=== PATIENT | female | born 1985 | race Hispanic/Latino ===

== ENCOUNTER 2019-11-26 21:25 | Emergency (ER) | payer OTHER ==
[~2019-11-26] VITALS: Ht 149.9 cm; Wt 75.7 kg
--- OUTSIDE RECORDS SUMMARY | 2019-11-26 21:28 | XMS REPORT | Continuity of Care Document ---
Author Author [facility] t Organization [facility] Address [address] [place] [address] Phone Unavailable Care Team Providers Care Waxer Tender Name Role Phone Tonia Tan PCP Dom HUTCHINSON, Deena Rose Attphys Payers Payer Name Policy Type Policy Number Effective Date Expiration Date S [facility] MEDICAID - MEDICAID [id number] CHIPxxxxxxxxx xxxxxxxxx [facility] Problems This patient has no known problems. Allergies, Adverse Reactions, Alerts Allergy Name Allergy Type Status Severity Reaction(s) Onset Date Inacti ve Date Treating Clinician Comments Source No Known Allergies DA Active U 2018-11-30 00:00:00 [facility] No Known Allergies DA Active U 2016-12-01 00:00:00 [facility] Social History Social Habit Start Date Stop Date Quantity Comments Source History SDOH Alcohol Std Drinks [facility] History SDOH Alcohol Binge [facility] Sex Assigned At [facility] History SDOH Alcohol Frequency 2019-08-31 00:00:00 2019-08-31 00:00:0 0 1 [facility] Smoking Status Start Date Stop Date Source Never smoker [facility] Medications Ordered Medication Name Filled Medication Name Start Date Stop Da te Current Medication? Ordering Clinician Indication Dosage Frequency Signature (SIG) Comments Components Source UNKNOWN 2019-08-31 20:02:40 Yes Unknown Medi cations . [facility] cefdinir (OMNICEF) 300 MG capsule 2019-08-31 00:00:00 2019 23:59:00 No 300mg Q.5D Take 1 capsule ( 300 mg total) by mouth 2 (two) times daily for 10 days. [facility] Vital Signs Vital Name Observation Time Observation Value Comments Source Body temperature 2019-08-31 20:50:00 37.11 Gena [facility] Systolic blood pressure 2019-08-31 19:40:00 119 mm[Hg] [facility] Diastolic blood pressure 2019-08-31 19:40:00 78 mm[Hg] [facility] Heart rate 2019-08-31 19:40:00 86 /min [facility] Respiratory rate 2019-08-31 19:40:00 16 /min [facility] Body height 2019-08-31 19:40:00 149.9 cm [facility] Body weight Measured 2019-08-31 19:40:00 82.827 kg [facility] BMI 2019-08-31 19:40:00 36.88 kg/m2 [facility] Oxygen saturation in Arterial blood by Pulse oximetry 08-30 19:40:00 98 /[facility] Procedures This patient has no known procedures. Results Test Description Test Time Test Comments Results Result Comments Source CBC W/AUTO DIFF 2018-11-30 22:20:00 Test Item WHITE BLOOD CELL (test code = WBC) 9.2 K/mm3 4.8-10.8 N RED BLOOD CELL (test code = RBC) 4.30 M/mm3 4.2-5.4 N HEMOGLOBIN (test code = HGB) 11.2 gm/DL 12.0-16.0 L HEMATOCRIT (test code = HCT) 33.8 % 34.7-43.3 L MEAN CELL VOLUME (test code = MCV) 78.6 fL 81-99 L MEAN CELL HGB (test code = MCH) 26.0 pg 27-31 L MEAN CELL HGB CONCETRATION (test code = MCHC) 33.1 gm/dL 33-37 N RED CELL DISTRIBUTION WIDTH (test code = RDW) 14.2 % 11.5-14. 5 N PLATELET COUNT (test code = PLT) 501 X10(3) 130-400 H MEAN PLATELET VOLUME (test code = MPV) 9.3 fL 9.4-12.4 L NEUTROPHIL % (test code = NT%) 50.8 % 51.5-79.7 L IMMATURE GRANULOCYTE % (test code = IG%) 0.200 % 0.108-0.322 N LYMPHOCYTE % (test code = LY%) 39.0 % 14-40 N MONOCYTE % (test code = MO%) 7.4 % 4.0-10.2 N EOSINOPHIL % (test code = EO%) 1.7 % 0-4.1 N BASOPHIL % (test code = BA%) 0.9 % 0.1-0.7 H NUCLEATED RBC % (test code = NRBC%) 0 % 0-0 N NEUTROPHIL # (test code = NT#) 4.7 K/mm3 2.5-8.6 N IMMATURE GRANULOCYTE # (test code = IG#) 0.020 K/mm3 0.0052-0.0224 N LYMPHOCYTE # (test code = LY#) 3.6 K/mm3 1.1-3.6 N MONOCYTE # (test code = MO#) 0.7 K/mm3 0.3-0.9 N EOSINOPHIL # (test code = EO#) 0.16 # 0.0-0.4 N BASOPHIL # (test code = BA#) 0.08 K/mm3 0.0-0.2 N NUCLEATED RBC # (test code = NRBC#) 0.00 K/mm3 0.00-0.20 N - CT HEAD/BRAIN W/O [id number] 22:20:00 [place]: ERIC St: REG Name: SHAE COOPER [facility] : 1985 Age/S: 33/F [address] Felder Unit #: [id number] Loc: SHE[place] [address] Phys: Keshav Mckinley Acct: [id number] Dis Date: Status: REG ER PHONE #: [phone] Exam Date: 11/30/2018 221 FAX #: [phone] Reason: RIGHT SIDE NUMBNESS CTDI: DLP: Automated exposure control, iterative reconstruction technique, and/oradjustment of mA and/or kV according t o patient's size was utilized fooptimum radiation dose reduction. EXAMS: CPT CODE: [id number] CT HEAD/BRAIN W/O CONT 58301 Exam: CT head without contrast. Location: H 12 History: RIGHT SIDE NUMBNESS Technique: Unenhanced spiral slices were taken from the base of the skull, through the vertex. One or more of t he following dose reduction techniques were used: Automated exposure contro l, adjustment of the mA and/or kV according to patient size, and/or utiliza tion of iterative reconstruction technique. Findings: No a cute intracranial abnormality is identified. The brain parenchyma and the C SF spaces are unremarkable. No mass, midline shift, hemorrhage, hydrocephal us or edema is seen. The visualized paranasal sinuses are clear. The mastoi d air cells are well pneumatized. The bony calvarium is intact. Impression: No acute intracranial abnormality. El ectronically Signed by ALFONSO FORD MD on at 2220 Reported and signed by: BLAINE FORD MD Facility ACR Accreditation for CT - January 2012 CC: Keshav DUMONT; Paris Lambert MD Technologist: SAUMYA VILLAVICENCIO RT(R)(CT)(ARRT) Transcribed Date/Time/By: 11/30 (2220) : By: Ricci Orig Print D/T: S: 11/30/2018 (6069) PAGE 1 Signed Report CHEMISTRY 8 [id number] 22:13:00* Test Item Value Reference Range Interpretation Comments IONIZED CALCIUM (test code = CAIABG) 1.20 mmol/L 1.13-1.32 N ISTAT-TCO2 VENOUS (test code = TCO2VP) 24 MMOL/L 24-30 N ISTAT-HEMOGLOBIN (test code = HBP) 12.2 G/DL 12.0-16.0 N ISTAT-HEMATOCRIT (test code = HCTP) 36 % 44.0-56.0 L ISTAT-SODIUM (test code = NAP) 141 MMOL/L 136-145 N ISTAT-POTASSIUM (test code = KP) 3.9 MMOL/L 3.5-5.1 N ISTAT-CHLORIDE (test code = CLP) 106 MMOL/L 98-107 N ISTAT GLUCOSE (test code = GLUP) 94 MG/DL 65-99 N ISTAT-BUN (test code = BUNP) 9 MG/DL 7-18 N BEDSIDE CREATININE (test code = CREATBED) 0.7 MG/DL 0.6-1.0 N
--- OUTSIDE RECORDS SUMMARY | 2019-11-26 21:28 | XMS REPORT | Clinical Summary ---
Author Author [facility] Organization [facility] Address Unknown Phone Unavailable Care Team Providers Care Clinical Data Specialist Name Role Phone Ranjan Tan PCP Allergies No Known Allergies Medications End Date Status Medication Sig Dispensed Refills Start Date Active UNKNOWN Unknown 0 Medications . 09/10/2019 cefdinir (OMNICEF) 300 MG Take 1 20 capsule 0 capsule capsule (300 0 mg total) by mouth 2 (two) times daily for 10 days. Active Problems Not on file Encounters Care Team Description Date Type Specialty Rose Fernandes MD Non-recurrent acute suppurative otitis m edia of left ear without spontaneous rupture of tympanic membrane (Primary Dx) 08/31/2019 Emergency Emergency Medicine 08/31/2019 Travel after 11/25/2018 Social History Date Tobacco Use Types Packs/Day Years Used Never Smoker Smokeless Tobacco: Never Used Alcohol Use Drinks/Week oz/Week Comments No Alcohol Habits Answer Date Recorded How often do you have a drink containing alcohol? Never 08/31/2019 How many drinks containing alcohol do you have on No t asked a typical day when you are drinking? How often do you have six or more drinks on one Not asked occasion? Sex Assigned at Date Recorded Not on file Industry Job Start Date Occupation Not on file Not on file Not on file Travel End Travel History Travel Start No recent travel history available. Last Filed Vital Signs Time Taken Vital Sign Reading 08/31/2019 7:40 PM CDT Blood Pressure 119/78 08/31/2019 7:40 PM CDT Pulse 86 08/31/2019 8:50 PM CDT Temperature 37.1 C (98.8 F) 08/31/2019 7:40 PM CDT Respiratory Rate 16 08/31/2019 7:40 PM CDT Oxygen Saturation 98% - Inhaled Oxygen - Concentration 08/31/2019 7:40 PM CDT Weight 82.8 kg (182 lb 9.6 oz) 08/31/2019 7:40 PM CDT Height 149.9 cm (4' 11") 08/31/2019 7:40 PM CDT Body Mass Index 36.88 Plan of Treatment Not on file Results Not on fileafter 11/25/2018 Insurance Payer Benefit Subscriber ID Type Phone Address Plan / Group MEDICAID - MEDICAID [facility] xxxxxxxxx CARE COMM PLAN CHIP
--- NOTE | 2019-11-26 22:04 | Emergency Department Note ---
History of Present Illnes History of Present Illness Chief Complaint: Respiratory History of Present Illness This is a 34 year old female with sensation of throat closure. Prior h /o of thyroid nodules. Historian: Patient Arrival Mode: Car Onset (how long ago): hour(s) (2) Severity: mild Onset quality: gradual Duration (how long): hour(s) (2) Timing of current episode: constant Progression: unchanged Chronicity: new Context: Reports recent illness Relieving factors: none Exacerbating factors: none Associated symptoms: Reports shortness of breath Treatments prior to arrival: none Past Medical/Family History Physician Review I have reviewed the patient's past medical and family history. Any updates have been documented here. Past Medical History Recent Fever: No Clinical Suspicion of Infectio: No New/Unexplained Change in Ment: No Other Medical History: DEPRESSION - RX'D TRAZODONE CHRONIC BACK PAIN - RX'D TYLENOL #3 PTSD "BORDERLINE DIABETES" PER PT Other Surgery: OVARIAN CYST REMOVED Social History Smoking Cessation: Never Smoker Alcohol Use: None Any Illegal Drug Use: No Review of Systems Review of Systems Constitutional: Reports no symptoms EENTM: Reports no symptoms Cardiovascular: Reports no symptoms Respiratory: Reports dyspnea Gastrointestinal: Reports no symptoms Genitourinary: Reports no symptoms Musculoskeletal: Reports no symptoms Integumentary: Reports no symptoms Neurological: Reports no symptoms Psychological: Reports no symptoms Endocrine: Reports no symptoms Hematological/Lymphatic: Reports no symptoms Review of other systems All other systems reviewed and negative. Physical Exam Related Data Allergies: Coded Allergies: No Known Allergies (Unverified , 03/30/16) Triage Vital Signs Vital Signs Date Time Temp Pulse Resp B/P (MAP) Pulse Ox O2 Delivery O2 Flow Rate FiO2 11/26/19 22:01 98.7 87 22 137/109 100 Vital signs reviewed: Yes Physical Exam CONSTITUTIONAL Constitutional: Reports well-developed, Reports well-nourished HENT HENT: Reports normocephalic, Reports atraumatic, Reports oropharynx clear/moist, Reports nose normal HENT L/R: Reports left ext ear normal, Reports right ext ear normal EYES Eyes: Reports PERRL, Reports conjunctivae normal NECK Neck: Reports ROM normal PULMONARY Pulmonary: Reports effort normal, Reports breath sounds normal CARDIOVASCULAR Cardiovascular: Reports regular rhythm, Reports heart sounds normal, Reports capillary refill normal, Reports normal rate GASTROINTESTINAL Abdominal: Reports soft, Reports nontender, Reports bowel sounds normal GENITOURINARY Genitourinary: Reports exam deferred SKIN Skin: Reports warm, Reports dry MUSCULOSKELETAL Musculoskeletal: Reports ROM normal NEUROLOGICAL Neurological: Reports alert, Reports oriented x 3, Reports no gross motor or sensory deficits PSYCHOLOGICAL Psychological: Reports mood/affect normal, Reports judgement normal Results Imaging Imaging results reviewed: Yes Impressions [place] [address] Patient Name: SHAE BARTLETT MR #: [id number] : 1985 Age/Sex: 34/F Req #: [id number] Adm Physician: Ordered by: ALICIA LYON DO Report #: [id number] Location: Room/Bed: Procedure: [id number] CT/CT SOFT TISSUE NECK WO Exam Date: 11/26/19 Exam Time: 2240 REPORT STATUS: Signed Examination:CT SOFT TISSUE NECK WO CONTRAST History: Burning sensation in the throat; cannot breath; neck pain. Comparison studies: None Technique: Axial images from the skull base to the thoracic inlet with coronal and sagittal reformats. Dose modulation, iterative reconstruction, and/or weight based adjustment of the mA/kV was utilized to reduce the radiation dose to as low as reasonably achievable. Findings: Evaluation of the neck is limited due to the absence of intravenous contrast. In spite of this limitation, Soft tissues: No abnormalities. Aerodigestive tract: No abnormality. Lymph nodes: No radiographically significant adenopathy. Thyroid gland: Enlarged in size with overall decrease in normal density, which could be due to hypofunction and/ or underlying lesions. Submandibular glands: Normal in size and homogeneous. Parotid glands: Normal in size and homogeneous. Orbits: No abnormalities. Paranasal sinuses: Clear. Temporal bones: No abnormalities. Skull base and facial bones: Intact. Cervical spine: No disc bulge or herniation or foraminal or canal stenosis. Visualized lung apices: No abnormalities. IMPRESSION: Thyromegaly with overall decrease in normal density, which could be due to hypofunction and/ or underlying lesions. An ultrasound would better visualize small cysts. Signed by: Dr. Megan Perez M.D. on 11/26/2019 11:41 PM Dictated By: MEGAN STALEY MD 40 Transcribed By: TRENT on 11/26/192340 COPY TO: ALICIA LYON DO~ Assessment & Plan Medical Decision Making MDM 34 yof presents with dyspnea, CTS neck ordered to r/o malignancy or soft tissue mass which could possibly occlude airway. CTS results reviewed with patient. Plan to discharge to home. Assessment & Plan Final Impression: (1) Enlarged thyroid gland (2) Dyspnea Depart Disposition: HOME, SELF-CARE ALICIA LYON DO Nov 26, 2019 22:04
--- NOTE | 2019-11-26 23:44 | Diagnostic Imaging Report ---
Examination:CT SOFT TISSUE NECK WO CONTRAST History: Burning sensation in the throat; cannot breath; neck pain. Comparison studies: None Technique: Axial images from the skull base to the thoracic inlet with coronal and sagittal reformats. Dose modulation, iterative reconstruction, and/or weight based adjustment of the mA/kV was utilized to reduce the radiation dose to as low as reasonably achievable. Findings: Evaluation of the neck is limited due to the absence of intravenous contrast. In spite of this limitation, Soft tissues: No abnormalities. Aerodigestive tract: No abnormality. Lymph nodes: No radiographically significant adenopathy. Thyroid gland: Enlarged in size with overall decrease in normal density, which could be due to hypofunction and/ or underlying lesions. Submandibular glands: Normal in size and homogeneous. Parotid glands: Normal in size and homogeneous. Orbits: No abnormalities. Paranasal sinuses: Clear. Temporal bones: No abnormalities. Skull base and facial bones: Intact. Cervical spine: No disc bulge or herniation or foraminal or canal stenosis. Visualized lung apices: No abnormalities. IMPRESSION: Thyromegaly with overall decrease in normal density, which could be due to hypofunction and/ or underlying lesions. An ultrasound would better visualize small cysts. Signed by: Dr. Megan Perez M.D. on 11/26/2019 11:41 PM
[2019-11-27 00:26] VITALS: BP 106/81
== END 2019-11-27 00:27 | disposition home or self-care (01) ==
LOC: ER 21:25
DX: R06.00 Dyspnea, unspecified (principal); E04.9 Nontoxic goiter, unspecified; F43.10 Post-traumatic stress disorder, unspecified; F32.9 Major depressive disorder, single episode, unspecified
CPT/HCPCS: 70490; 99283

== ENCOUNTER 2021-11-20 19:56 | Emergency (ER) | payer OTHER ==
[~2021-11-20] VITALS: Ht 149.9 cm; Wt 75.7 kg
[2021-11-20] MEDS ORDERED: KETOROLAC TROMETHAMINE 30 MG/ML VIAL IV STA (20:17)
[2021-11-20] MEDS ORDERED: KETOROLAC TROMETHAMINE 30 MG/ML VIAL ONE (20:31)
[2021-11-20 20:49] LABS: BASOPHILS # (AUTO) 0.1 (0.0-0.1); BASOPHILS % 0.6 % (0.0-1.0); EOSINOPHILS # (AUTO) 0.2 (0.0-0.4); EOSINOPHILS % 1.4 % (0.0-6.0); HEMATOCRIT 34.3 % (34.2-44.1); HEMOGLOBIN 10.5 g/dL (12.0-16.0); LYMPHOCYTES # (AUTO) 2.7 (1.0-3.2); LYMPHOCYTES % 21.4 % (18.0-39.1); MEAN CORPUSCULAR HEMOGLOBIN 22.7 pg (28-32); MEAN CORPUSCULAR HGB CONC 30.6 g/dL (31-35); MEAN CORPUSCULAR VOLUME 74.2 fL (81-99); MONOCYTES # (AUTO) 0.8 (0.2-0.8); NEUTROPHILS # (AUTO) 8.7 (2.1-6.9); PLATELET COUNT 675 x10e3/uL (140-360); RED BLOOD COUNT 4.62 x10e6/uL (3.6-5.1); RED CELL DISTRIBUTION WIDTH 17.2 % (11.7-14.4)
[2021-11-20 21:07] LABS: ALANINE AMINOTRANSFERASE 77 IU/L (0-55); ALBUMIN 3.3 g/dL (3.5-5.0); ALBUMIN/GLOBULIN RATIO 0.8 (0.8-2.0); ALKALINE PHOSPHATASE 94 IU/L (40-150); BLOOD UREA NITROGEN 7 mg/dL (7-26); BUN/CREATININE RATIO 9 (6-25); CALCIUM 8.7 mg/dL (8.4-10.2); CARBON DIOXIDE 24 mmol/L (22-29); CHLORIDE 105 mmol/L (98-107); CREATINE KINASE 71 IU/L (29-168); CREATININE, SERUM 0.79 mg/dL (0.57-1.11); GLUCOSE 97 mg/dL (74-118); SODIUM 140 mmol/L (136-145)
[2021-11-20 22:58] VITALS: BP 90/51
== END 2021-11-20 23:05 | disposition home or self-care (01) ==
LOC: ER 20:11
DX: R07.89 Other chest pain (principal); M54.9 Dorsalgia, unspecified; G89.29 Other chronic pain; F43.10 Post-traumatic stress disorder, unspecified; R94.31 Abnormal electrocardiogram [ECG] [EKG]
CPT/HCPCS: 36415; 71045; 80053; 82550; 82553; 84484; 85025; 93005; 99284; J1885

== ENCOUNTER 2021-12-12 19:59 | Emergency (ER) | payer OTHER ==
[~2021-12-12] VITALS: Ht 149.9 cm; Wt 75.7 kg
== END 2021-12-12 20:50 | disposition home or self-care (01) ==
LOC: ER 20:09
DX: B37.3 Candidiasis of vulva and vagina (principal); M54.9 Dorsalgia, unspecified; F32.A Depression, unspecified; F43.10 Post-traumatic stress disorder, unspecified; Z87.440 Personal history of urinary (tract) infections
CPT/HCPCS: 99282

== ENCOUNTER 2021-12-15 16:59 | Emergency (ER) | payer OTHER ==
[~2021-12-15] VITALS: Ht 149.9 cm; Wt 75.7 kg
[2021-12-15] MEDS ORDERED: DOXYCYCLINE HY100 MG PO (17:59)
[2021-12-15] MEDS ORDERED: LIDOCAINE 1% 5ML-MPF INJ ONE (18:00)
[2021-12-15] MEDS ORDERED: DOXYCYCLINE HYCLATE TABLET 100 MG TAB PO ONE (18:00)
[2021-12-15] MEDS ORDERED: CEFTRIAXONE 1 GM VIAL IM ONE (18:00)
== END 2021-12-15 20:44 | disposition home or self-care (01) ==
LOC: ER 17:08
DX: N73.0 Acute parametritis and pelvic cellulitis (principal); N72 Inflammatory disease of cervix uteri
CPT/HCPCS: 87210; 87491; 87591; 99283; J0696

== ENCOUNTER 2022-04-29 19:51 | Emergency (ER) | payer OTHER ==
[~2022-04-29] VITALS: Ht 149.9 cm; Wt 75.7 kg
[~2022-04-29 19:51] MED LIST: DOXYCYCLINE HY100 MG PO
[2022-04-29 21:02] LABS: CLARITY,URINE HAZY (CLEAR); COLOR,URINE YELLOW (YELLOW); KETONES,URINE NEGATIVE (NEGATIVE); LEUKOCYTE ESTERASE ,URINE MODERATE (NEGATIVE); NITRITE,URINE NEGATIVE (NEGATIVE); PROTEIN,URINE DIPSTICK 2+ (NEGATIVE); URINE UROBILINOGEN 0.2 mg/dL (0.2 - 1)
[2022-04-29 21:13] LABS: BACTERIA,URINE MODERATE /HPF; RBC,URINE 21-50 /HPF (0-5)
[2022-04-29] MEDS ORDERED: CEPHALEXIN500 MG PO (22:49)
== END 2022-04-30 00:16 | disposition home or self-care (01) ==
LOC: ER 20:16
DX: R30.0 Dysuria (principal); N39.0 Urinary tract infection, site not specified; F32.A Depression, unspecified; F43.10 Post-traumatic stress disorder, unspecified; M54.9 Dorsalgia, unspecified; G89.29 Other chronic pain
CPT/HCPCS: 81001; 81025; 99282

== ENCOUNTER 2022-09-07 18:06 | Emergency (ER) | payer OTHER ==
[~2022-09-07] VITALS: Ht 149.9 cm; Wt 75.7 kg
[~2022-09-07 18:06] MED LIST changes: +CEFUROXIME250 MG PO; +CEPHALEXIN500 MG PO
[2022-09-07] MEDS ORDERED: ACETAMINOPHEN 325 MG TAB PO ONE (19:00)
== END 2022-09-07 21:00 | disposition home or self-care (01) ==
LOC: ER 18:40
DX: M79.642 Pain in left hand (principal); S60.222A Contusion of left hand, initial encounter; S60.052A Contusion of left little finger without damage to nail, initial encounter; Y04.0XXA Assault by unarmed brawl or fight, initial encounter; Y92.89 Other specified places as the place of occurrence of the external cause; M54.9 Dorsalgia, unspecified; G89.29 Other chronic pain; F32.A Depression, unspecified
CPT/HCPCS: 99283